=== PATIENT | male | born 1990 | race Caucasian/White ===

== ENCOUNTER 2018-01-29 06:59 | Emergency (ER) | payer SELFPAY ==
[~2018-01-29] VITALS: Ht 170.2 cm; Wt 99.3 kg
[2018-01-29 07:07] VITALS: BP 135/90
--- NOTE | 2018-01-29 07:14 | NUR ---
PT AMBULATED TO BED 2
--- NOTE | 2018-01-29 07:15 | NUR ---
PATIENT PRESENTS TO ED WITH 27/M PRESENT TO ER C/O ABDOMINAL RUQ PAIN x TODAY @ 0500. PT DENIES NAUSEA, VOMITING ,DIARRHEA OR CONSTIPATION. MEDS: NONE HX: DENIES; SKIN IS PINK/WARM/DRY; AAOX4 WITH EVEN AND STEADY GAIT; LUNGS CLEAR BL; HR EVEN AND REGULAR; PT DENIES ANY FEVER, CP, SOB, OR COUGH AT THIS TIME; PATIENT STATES PAIN OF 6/10 AT THIS TIME; VSS; PATIENT POSITIONED FOR COMFORT; HOB ELEVATED; BEDRAILS UP X2; BED DOWN. ER MD MADE AWARE OF PT STATUS.
--- NOTE | 2018-01-29 07:20 | NUR ---
Dr. Kaufman evaluating patient at bedside.
--- NOTE | 2018-01-29 07:22 | NUR ---
Marky rose in [facility] - 01/29/18 at 0725 by [facility] RECEIVED REPORT FROM STEFAN MONSALVE FOR CONTINUITY OF CARE
[2018-01-29] MEDS ORDERED: KETOROLAC 60 MG/2 ML VIAL IM ONE (07:25)
[2018-01-29 08:07] LABS: BASOPHILS # (AUTO) 0.1 K/uL (0.00-0.22); BASOPHILS % (AUTO) 0.6 % (0.0-2.0); EOSINOPHILS # (AUTO) 0.1 K/uL (0-0.4); HEMATOCRIT 45.3 % (36-52); HEMOGLOBIN 15.2 g/dL (12.0-18.0); LYMPHOCYTES # (AUTO) 1.5 K/uL (2.0-11.5); LYMPHOCYTES % (AUTO) 9.8 % (20.5-51.1); MEAN CORPUSCULAR HEMOGLOBIN 30 pg (27-31); MEAN CORPUSCULAR HGB CONC 34 g/dL (33-37); MEAN CORPUSCULAR VOLUME 88.2 fL (80-94); MONOCYTES # (AUTO) 0.7 K/uL (0.8-1.0); MONOCYTES % (AUTO) 4.7 % (1.7-9.3); NEUTROPHILS % (AUTO) 83.9 % (42.2-75.2); PLATELET COUNT (AUTO) 314 K/uL (140-450); RED BLOOD CELL COUNT(AUTO) 5.14 MIL/uL (4.20-6.10); WHITE BLOOD COUNT (AUTO) 15.5 K/uL (4.8-10.8)
[2018-01-29 08:08] LABS: APPEARANCE,URINE HAZY (CLEAR); BILIRUBIN,URINE NEGATIVE (NEGATIVE); BLOOD, URINE 3+ (NEGATIVE); COLOR,URINE YELLOW (YELLOW); LEUKOCYTE ESTERASE ,URINE NEGATIVE (NEGATIVE); NITRITE, URINE NEGATIVE (NEGATIVE); PH,URINE 5.5 (5.0-9.0); UGLUCOSE NEGATIVE (NEGATIVE)
[2018-01-29 08:16] LABS: ANION GAP 11.4 (8-16); CARBON DIOXIDE 27.5 mmol/L (21-32); POTASSIUM 3.9 mmol/L (3.5-5.1)
[2018-01-29 08:22] LABS: ALBUMIN 3.7 g/dL (3.4-5.0); TOTAL BILIRUBIN 0.6 mg/dL (0.0-1.0)
[2018-01-29 08:37] LABS: RBC,URINE >100 /HPF (0-5)
[2018-01-29 08:38] LABS: WBC,URINE 0-5 (RARE) /HPF (0-5)
[2018-01-29 09:55] VITALS: BP 141/84
== END 2018-01-29 10:12 | disposition home or self-care (01) ==
LOC: MED 06:59
DX: K80.20 Calculus of gallbladder without cholecystitis without obstruction (principal); R31.29 Other microscopic hematuria; R03.0 Elevated blood-pressure reading, without diagnosis of hypertension
CPT/HCPCS: 36415; 76705; 80053; 81001; 83690; 85025; 87086; 96372; 99285; J1885; Q0092